=== PATIENT | female | born 1965 | race African-American/Black ===

== ENCOUNTER 2019-04-27 09:49 | Day surgery (SDC) | payer OTHER ==
[2019-04-27] MEDS ORDERED: SODIUM CHLORIDE 0.9% 1000 ML 1,000 ML ONE (11:03)
[2019-04-27] MEDS ORDERED: SODIUM CHLORIDE 0.9% 1000 ML 1,000 ML IV SCH (11:15)
--- NOTE | 2019-04-27 12:32 | Anesthesia Day of Surgery ---
Anesthesia Day of Surgery - Day of Surgery Patient Examined: Yes Patient H&P Reviewed: Yes Patient is NPO: Yes
--- NOTE | 2019-04-27 12:32 | Anesthesia Consultation ---
Anesthesia Consult and Med Hx Date of service: 04/27/19 - Airway Anesthetic Teeth Evaluation: Good ROM Head & Neck: Adequate Mental/Hyoid Distance: Adequate Mallampati Class: Class III Intubation Access Assessment: Possibly Difficult - Pulmonary Exam CTA: Yes - Cardiac Exam Cardiac Exam: RRR - Pre-Operative Health Status ASA Pre-Surgery Classification: ASA2 Proposed Anesthetic Plan: MAC - Pulmonary Hx Smoking: No Hx Respiratory Symptoms: No - Cardiovascular System Hx Hypertension: No - Central Nervous System CVA: No - Gastrointestinal Hx Gastroesophageal Reflux Disease: Yes - Endocrine Hx Renal Disease: No Hx Liver Disease: No Hx Insulin Dependent Diabetes: No Hx Non-Insulin Dependent Diabetes: No Hx Thyroid Disease: No - Other Systems Hx Obesity: No
[2019-04-27] MEDS ORDERED: PROPOFOL 200 MG/20 ML VIAL IV ONE (12:52)
--- NOTE | 2019-04-27 13:17 | Short Stay Summary ---
Short Stay Documentation Date of service: 04/27/19 Narrative H&P: The patient is a 54 yo female who presents for screening colonoscopy; denies gi complaints at this time. no prior colonoscopy. - History Past Medical History: other (no changes from clinic note) Past Surgical History: Other (no changes from clinic note) Social history: no significant social history - Allergies and Medications Current Medications: Allergies No Known Allergies Allergy (Unverified 04/27/19 09:50) Active Medications Sodium Chloride (Nacl 0.9% 1000 Ml) 1,000 mls @ 50 mls/hr IV DIRECT AYDE - Physical exam General appearance: no acute distress Lungs: Clear to auscultation Heart: Regular rate, Normal S1, Normal S2 Gastrointestinal: normal Extremities: No edema - Brief post op/procedure progress note Date of procedure: 04/27/19 Pre-op diagnosis: Screening for colorectal cancer Post-op diagnosis: other (normal colonoscopy) Procedure: Colonoscopy Anesthesia: MAC Findings: Normal colonoscopy Surgeon: JUJU PEPE Estimated blood loss: none Pathology: none Condition: stable - Disposition Condition at discharge: Good Disposition: DC-01 TO HOME OR SELFCARE Short Stay Discharge Plan Follow up with: IMANI ROLON JR, MD [Primary Care Provider] - 7 Days
--- NOTE | 2019-04-27 13:21 | Operative Report ---
Operative Report Operative Report: Colonoscopy Procedure Note Date of procedure: 04/27/2019 Endoscopist: Henry Danielson Pre-op diagnosis/indication: Screening for colorectal cancer Post-op diagnosis: Normal colonoscopy MEDICATIONS: MAC COMPLICATIONS: No immediate complications ESTIMATED BLOOD LOSS: none DESCRIPTION OF PROCEDURE: After consent was obtained, the patient was placed in the left lateral decubitis position. The olympus colonoscope was inserted into the rectum under direct vision, and advanced to the cecum without difficulty. The quality of prep was fair. The patient tolerated the procedure well. The patient's vital signs were monitored continuously throughout the procedure. FINDINGS: The entire examined colon appeared normal. IMPRESSION: 1. Normal colonoscopy RECOMMENDATIONS: -repeat colonoscopy in 5 years for screening purposes due to fair prep
--- NOTE | 2019-04-27 13:29 | Post Anesthesia Evaluation ---
- Post Anesthesia Evaluation Patient Participated: Yes Airway Patent: Yes Stable Respiratory Function: Yes Nausea/Vomiting: No Temp > 96.8F: Yes Pain Manageable: Yes Adequeate Hydration: Yes Anesthesia Complications: No Block Receding Appropriately: Not Applicable Patient on Ventilator: No
[2019-04-27 14:58] VITALS: BP 110/63
== END 2019-04-27 09:50 | disposition home or self-care (01) ==
LOC: GIO 09:49
PROVIDERS: ATTEND Internal Medicine Gastroenterology
DX: Z12.11 Encounter for screening for malignant neoplasm of colon (principal); K21.9 Gastro-esophageal reflux disease without esophagitis
CPT/HCPCS: 45378; 82962; J2704; J7030